=== PATIENT | male | born 1935 | race Caucasian/White ===

== ENCOUNTER 2017-02-10 14:47 | Inpatient (IN) | payer OTHER ==
[~2017-02-10] VITALS: Ht 170.2 cm; Wt 128.7 kg
[~2017-02-10 14:47] MED LIST: None per pt; OXYC-302 PO; TAMS0.4C2 PO; [UNRECOGNIZED DRUG - REMARK]
[2017-02-10] MEDS ORDERED: SODIUM CHLORIDE FLUSH 10ML SYR IVF ONE (15:30)
[2017-02-10] MEDS ORDERED: ALBUTEROL/IPRATROPIUM 2.5MG/0.5MG, 3 ML NPPB ONE (16:00)
[2017-02-10 16:27] LABS: BLOOD UREA NITROGEN 27 mg/dL (7-18)
[2017-02-10] MEDS ORDERED: ALBUTEROL/IPRATROPIUM 2.5MG/0.5MG, 3 ML ONE (16:33)
[2017-02-10 16:44] LABS: IS PT STATUS REG ER OR PRE ER? YES
[2017-02-10 16:58] LABS: DIFF TOTAL CELLS COUNTED 100 CELL DIFF
[2017-02-10 17:00] LABS: VERIFY COUNTS? YES
[2017-02-10] MEDS ORDERED: LEVOFLOXACIN/PMX 750MG/150ML 150 ML IVPB ONE (17:00)
[2017-02-10 17:01] LABS: ANISOCYTOSIS 1+; OVALOCYTES 1+; POLYCHROMASIA 1+
[2017-02-10 17:03] LABS: LARGE PLATELETS 1+
[2017-02-10] MEDS ORDERED: LEVOFLOXACIN/PMX 750MG/150ML 150 ML ONE (17:08)
[2017-02-10] MEDS ORDERED: ASPIRIN 81 MG TABLET CHEW ONE (17:08)
[2017-02-10] MEDS ORDERED: NITROGLYCERIN OINT 2%, 1GM TP ONE ×2 (17:08→17:30)
[2017-02-10] MEDS ORDERED: ASPIRIN 81 MG TABLET CHEW PO ONE (17:30)
[2017-02-10] MEDS ORDERED: SODIUM CHLORIDE FLUSH 10ML SYR IVF PRN (18:30)
[2017-02-10] MEDS ORDERED: ENALAPRILAT 1.25 MG/ML, 2ML IV PRN (18:30)
[2017-02-10] MEDS ORDERED: HEPARIN 5,000 UNITS/ML, 1ML IV PRN (19:30)
[2017-02-10] MEDS ORDERED: HEPARIN 25,000 UNITS/500ML PMX 500 ML IV PRN (19:30)
[2017-02-10] MEDS ORDERED: HEPARIN 5,000 UNITS/ML, 1ML IV ONE (19:30)
[2017-02-10 19:56] VITALS: BP 178/100
[2017-02-10] MEDS ORDERED: BISACODYL 10 MG SUPP PR PRN (20:00)
[2017-02-10] MEDS ORDERED: ACETAMINOPHEN 325 MG TABLET PO PRN (20:00)
[2017-02-10] MEDS ORDERED: MORPHINE SULFATE 4 MG/ML, 1ML IVPush PRN (20:00)
[2017-02-10] MEDS ORDERED: DOCUSATE 100 MG CAPSULE PO PRN (20:00)
[2017-02-10 20:40] VITALS: BP 183/97
[2017-02-10 21:12] LABS: IS PT STATUS REG ER OR PRE ER? NO
[2017-02-10] MEDS: DOXYCYCLINE 100 MG in DEXTROSE 5% 250 ML IV SCH (23:38)
[2017-02-10] MEDS: LISINOPRIL 20 MG TABLET PO SCH (23:38)
[2017-02-10] MEDS: FUROSEMIDE 40 MG/4 ML IV SCH (23:38)
[2017-02-11] MEDS: OFLOXACIN OPHTH 0.3%, 5ML EACHEYE SCH ×5 (00:59→20:25)
[2017-02-11] MEDS: CEFTRIAXONE PMX 1GM/50ML 50 ML IV SCH ×2 (00:59→20:25)
[2017-02-11 01:31] VITALS: BP 164/93
[2017-02-11 01:38] LABS: HEMOGLOBIN 17.1 g/dL (13.7-18.0)
[2017-02-11 01:47] LABS: ASPARTATE AMINO TRANSFERASE 45 U/L (15-37); BLOOD UREA NITROGEN 21 mg/dL (7-18)
[2017-02-11 01:49] LABS: IS PT STATUS REG ER OR PRE ER? NO
[2017-02-11 01:58] LABS: DIFF TOTAL CELLS COUNTED 100 CELL DIFF
[2017-02-11 02:01] LABS: ANISOCYTOSIS 1+; POLYCHROMASIA 1+; VERIFY COUNTS? YES
[2017-02-11] MEDS: ASPIRIN 325 MG TABLET EC PO SCH (06:16)
[2017-02-11] MEDS: FUROSEMIDE 40 MG/4 ML IV SCH ×3 (07:30→17:12)
[2017-02-11 08:45] VITALS: BP 160/83
[2017-02-11] MEDS: DOXYCYCLINE 100 MG in DEXTROSE 5% 250 ML IV SCH ×2 (09:09→20:25)
[2017-02-11] MEDS: LISINOPRIL 20 MG TABLET PO SCH (09:09)
[2017-02-11 10:40] VITALS: BP 144/74
[2017-02-11] MEDS: CARVEDILOL 3.125 MG TABLET PO SCH ×2 (10:41→17:13)
[2017-02-11] MEDS: SPIRONOLACTONE 25 MG TABLET PO SCH ×2 (10:41→20:25)
[2017-02-11] MEDS: HEPARIN 5,000 UNITS/ML, 1ML SQ SCH ×2 (10:53→17:13)
[2017-02-11 13:36] VITALS: BP 132/71
[2017-02-11 17:13] VITALS: BP 143/68
[2017-02-11 20:55] VITALS: BP 155/64
[2017-02-12 00:14] VITALS: BP 154/76
[2017-02-12] MEDS: FUROSEMIDE 40 MG/4 ML IV SCH ×2 (00:39→08:28)
[2017-02-12] MEDS: HEPARIN 5,000 UNITS/ML, 1ML SQ SCH ×3 (03:09→17:41)
[2017-02-12 06:18] LABS: HEMOGLOBIN 16.7 g/dL (13.7-18.0)
[2017-02-12 06:32] LABS: BLOOD UREA NITROGEN 28 mg/dL (7-18)
[2017-02-12] MEDS: ASPIRIN 325 MG TABLET EC PO SCH (06:32)
[2017-02-12] MEDS: CARVEDILOL 3.125 MG TABLET PO SCH ×2 (06:32→17:41)
[2017-02-12] MEDS: OFLOXACIN OPHTH 0.3%, 5ML EACHEYE SCH ×4 (06:32→20:04)
[2017-02-12] MEDS: DOXYCYCLINE 100 MG in DEXTROSE 5% 250 ML IV SCH ×2 (08:27→20:04)
[2017-02-12] MEDS: SPIRONOLACTONE 25 MG TABLET PO SCH (08:28)
[2017-02-12] MEDS: LISINOPRIL 20 MG TABLET PO SCH (08:28)
[2017-02-12 08:31] VITALS: BP 147/59
[2017-02-12 12:39] VITALS: BP 110/47
[2017-02-12] MEDS ORDERED: ENALAPRILAT 1.25 MG/ML, 2ML IV PRN (15:00)
[2017-02-12] MEDS: FUROSEMIDE 40 MG TABLET PO SCH (17:41)
[2017-02-12] MEDS ORDERED: FUROSEMIDE 40 MG/4 ML IV SCH (20:00)
[2017-02-12] MEDS: CEFTRIAXONE PMX 1GM/50ML 50 ML IV SCH (20:04)
[2017-02-12] MEDS: SPIRONOLACTONE 50 MG TABLET PO SCH (20:04)
[2017-02-12 20:05] VITALS: BP 172/76
[2017-02-13 01:15] VITALS: BP 168/80
[2017-02-13] MEDS: HEPARIN 5,000 UNITS/ML, 1ML SQ SCH ×3 (02:42→17:13)
[2017-02-13 05:19] LABS: HEMOGLOBIN 17.4 g/dL (13.7-18.0)
[2017-02-13 05:23] LABS: BLOOD UREA NITROGEN 26 mg/dL (7-18)
[2017-02-13] MEDS: CARVEDILOL 3.125 MG TABLET PO SCH (06:44)
[2017-02-13] MEDS: ASPIRIN 81 MG TABLET EC PO SCH (06:44)
[2017-02-13] MEDS: OFLOXACIN OPHTH 0.3%, 5ML EACHEYE SCH ×4 (06:46→20:43)
[2017-02-13 06:51] VITALS: BP 166/82
[2017-02-13] MEDS ORDERED: LISINOPRIL 20 MG TABLET PO SCH (09:00)
[2017-02-13] MEDS: DOXYCYCLINE 100 MG in DEXTROSE 5% 250 ML IV SCH (09:34)
[2017-02-13] MEDS: SPIRONOLACTONE 50 MG TABLET PO SCH ×2 (09:34→20:43)
[2017-02-13] MEDS: FUROSEMIDE 40 MG TABLET PO SCH ×2 (09:35→17:00)
[2017-02-13] MEDS: LISINOPRIL 20 MG TABLET PO SCH (09:39)
[2017-02-13] MEDS ORDERED: NALOXONE 0.4 MG/ML, 1ML IVPush ONE (10:00)
[2017-02-13 10:11] LABS: ABG COLLECTION SITE RIGHT RADIAL; COLLATERAL CIRCULATION TESTING NORMAL
[2017-02-13 11:43] LABS: ASPARTATE AMINO TRANSFERASE 32 U/L (15-37); BLOOD UREA NITROGEN 23 mg/dL (7-18)
[2017-02-13] MEDS: LACTULOSE 20 GM/30 ML UDC PO SCH ×2 (11:43→20:43)
[2017-02-13 12:39] VITALS: BP 164/93
[2017-02-13] MEDS ORDERED: FUROSEMIDE 100 MG/10 ML IV ONE (13:30)
[2017-02-13 15:16] LABS: ABG COLLECTION SITE RIGHT RADIAL; COLLATERAL CIRCULATION TESTING NORMAL
[2017-02-13] MEDS: FUROSEMIDE 40 MG/4 ML IV SCH (17:13)
[2017-02-13] MEDS: CARVEDILOL 12.5 MG TABLET PO SCH (17:13)
[2017-02-14] MEDS: HEPARIN 5,000 UNITS/ML, 1ML SQ SCH ×3 (02:24→17:14)
[2017-02-14 04:00] VITALS: BP_SYST 136; BP_SYST 96; BP_DIAS 57
[2017-02-14 04:21] LABS: HEMOGLOBIN 17.1 g/dL (13.7-18.0)
[2017-02-14 04:35] LABS: ANISOCYTOSIS 1+
[2017-02-14 04:36] LABS: POLYCHROMASIA 1+
[2017-02-14] MEDS: ASPIRIN 81 MG TABLET EC PO SCH (06:22)
[2017-02-14] MEDS: CARVEDILOL 12.5 MG TABLET PO SCH ×2 (06:22→17:14)
[2017-02-14] MEDS: OFLOXACIN OPHTH 0.3%, 5ML EACHEYE SCH ×4 (06:23→21:01)
[2017-02-14] MEDS: FUROSEMIDE 40 MG TABLET PO SCH ×2 (08:00→17:00)
[2017-02-14 08:38] LABS: ABG COLLECTION SITE LEFT RADIAL; COLLATERAL CIRCULATION TESTING NORMAL
[2017-02-14] MEDS: LISINOPRIL 20 MG TABLET PO SCH (08:55)
[2017-02-14] MEDS: FUROSEMIDE 40 MG/4 ML IV SCH (08:55)
[2017-02-14] MEDS: SPIRONOLACTONE 50 MG TABLET PO SCH ×2 (08:59→21:01)
[2017-02-14] MEDS: LACTULOSE 20 GM/30 ML UDC PO SCH (09:00)
[2017-02-15] MEDS: HEPARIN 5,000 UNITS/ML, 1ML SQ SCH ×3 (02:01→18:32)
[2017-02-15 03:00] VITALS: BP 144/78
[2017-02-15 04:25] LABS: BLOOD UREA NITROGEN 34 mg/dL (7-18)
[2017-02-15 04:29] LABS: ASPARTATE AMINO TRANSFERASE 45 U/L (15-37)
[2017-02-15 04:30] LABS: ANISOCYTOSIS 1+; LARGE PLATELETS 1+
[2017-02-15 04:34] LABS: POLYCHROMASIA 1+
[2017-02-15] MEDS: OFLOXACIN OPHTH 0.3%, 5ML EACHEYE SCH ×4 (05:12→20:41)
[2017-02-15] MEDS: CARVEDILOL 12.5 MG TABLET PO SCH ×2 (06:33→18:32)
[2017-02-15] MEDS ORDERED: SODIUM CHLORIDE 0.9% 500 ML IV SCH (07:48)
[2017-02-15] MEDS ORDERED: OCTREOTIDE 500 MCG in SODIUM CHLORIDE 0.9% 249 ML IV SCH (08:00)
[2017-02-15] MEDS: FUROSEMIDE 40 MG TABLET PO SCH (08:00)
[2017-02-15] MEDS: ASPIRIN 81 MG TABLET EC PO SCH (08:42)
[2017-02-15] MEDS: LISINOPRIL 20 MG TABLET PO SCH (08:43)
[2017-02-15] MEDS ORDERED: PHARMACOKINETIC MONITORING MC PRN (11:00)
[2017-02-15] MEDS: METRONIDAZOLE PMX 500MG/100ML 100 ML IV SCH ×2 (11:00→19:55)
[2017-02-15] MEDS ORDERED: VANCOMYCIN PER PHARMACY MC PRN (11:00)
[2017-02-15] MEDS: VANCOMYCIN 2,000 MG in SODIUM CHLORIDE 0.9% 500 ML IV SCH (15:56)
[2017-02-16] MEDS: HEPARIN 5,000 UNITS/ML, 1ML SQ SCH ×3 (02:27→16:47)
[2017-02-16] MEDS: METRONIDAZOLE PMX 500MG/100ML 100 ML IV SCH ×3 (04:42→20:36)
[2017-02-16 05:00] VITALS: BP 121/64
[2017-02-16] MEDS: ASPIRIN 81 MG TABLET EC PO SCH (05:44)
[2017-02-16] MEDS: OFLOXACIN OPHTH 0.3%, 5ML EACHEYE SCH ×4 (05:45→20:37)
[2017-02-16] MEDS: CARVEDILOL 12.5 MG TABLET PO SCH ×2 (06:00→16:43)
[2017-02-16] MEDS ORDERED: REGADENOSON 0.4 MG/5 ML SYRINGE ONE (07:48)
[2017-02-16] MEDS: FUROSEMIDE 20 MG TABLET PO SCH (08:50)
[2017-02-16 08:55] LABS: ABG COLLECTION SITE LEFT RADIAL; COLLATERAL CIRCULATION TESTING NORMAL
[2017-02-16] MEDS: LISINOPRIL 20 MG TABLET PO SCH (08:55)
[2017-02-16] MEDS ORDERED: SPIRONOLACTONE 50 MG TABLET PO SCH (09:00)
[2017-02-16] MEDS: VANCOMYCIN 2,000 MG in SODIUM CHLORIDE 0.9% 500 ML IV SCH (10:59)
[2017-02-16] MEDS: SPIRONOLACTONE 50 MG TABLET PO SCH (20:37)
[2017-02-17] MEDS: HEPARIN 5,000 UNITS/ML, 1ML SQ SCH ×3 (03:00→19:26)
[2017-02-17 04:00] VITALS: BP 120/55
[2017-02-17] MEDS: METRONIDAZOLE PMX 500MG/100ML 100 ML IV SCH ×3 (04:18→19:27)
[2017-02-17 04:45] LABS: ASPARTATE AMINO TRANSFERASE 49 U/L (15-37); BLOOD UREA NITROGEN 27 mg/dL (7-18)
[2017-02-17 04:50] LABS: HEMOGLOBIN 15.7 g/dL (13.7-18.0)
[2017-02-17] MEDS: ASPIRIN 81 MG TABLET EC PO SCH (05:54)
[2017-02-17] MEDS: CARVEDILOL 12.5 MG TABLET PO SCH ×2 (05:54→19:26)
[2017-02-17] MEDS: OFLOXACIN OPHTH 0.3%, 5ML EACHEYE SCH ×4 (05:55→21:21)
[2017-02-17] MEDS: SPIRONOLACTONE 50 MG TABLET PO SCH ×2 (09:23→21:21)
[2017-02-17] MEDS: FUROSEMIDE 20 MG TABLET PO SCH (09:24)
[2017-02-17] MEDS: LISINOPRIL 20 MG TABLET PO SCH (09:26)
[2017-02-17] MEDS ORDERED: REGADENOSON 0.4 MG/5 ML SYRINGE ONE (10:20)
[2017-02-17] MEDS: ALBUTEROL/IPRATROPIUM 2.5MG/0.5MG, 3 ML NPPB SCH ×3 (11:00→20:00)
[2017-02-17] MEDS: VANCOMYCIN 2,000 MG in SODIUM CHLORIDE 0.9% 500 ML IV SCH (11:00)
[2017-02-17] MEDS ORDERED: SODIUM CHLORIDE 0.9%, 500ML IVBOLUS ONE ×2 (12:30→13:30)
[2017-02-17] MEDS ORDERED: OMNIPAQUE 350 MG/ML, 100ML BOTTLE ONE (13:39)
[2017-02-18] MEDS: HEPARIN 5,000 UNITS/ML, 1ML SQ SCH ×3 (03:29→18:36)
[2017-02-18] MEDS: METRONIDAZOLE PMX 500MG/100ML 100 ML IV SCH ×3 (03:29→20:18)
[2017-02-18 04:00] VITALS: BP 100/53
[2017-02-18 04:48] LABS: BLOOD UREA NITROGEN 25 mg/dL (7-18)
[2017-02-18 04:52] LABS: ASPARTATE AMINO TRANSFERASE 83 U/L (15-37)
[2017-02-18] MEDS: CARVEDILOL 12.5 MG TABLET PO SCH ×2 (06:00→18:35)
[2017-02-18] MEDS: ASPIRIN 81 MG TABLET EC PO SCH (06:08)
[2017-02-18] MEDS: OFLOXACIN OPHTH 0.3%, 5ML EACHEYE SCH ×4 (06:08→20:22)
[2017-02-18] MEDS: ALBUTEROL/IPRATROPIUM 2.5MG/0.5MG, 3 ML NPPB SCH ×4 (07:00→20:00)
[2017-02-18] MEDS: SPIRONOLACTONE 50 MG TABLET PO SCH ×2 (08:54→20:22)
[2017-02-18] MEDS: LISINOPRIL 20 MG TABLET PO SCH (08:54)
[2017-02-18] MEDS: FUROSEMIDE 20 MG TABLET PO SCH (10:54)
[2017-02-19] MEDS: HEPARIN 5,000 UNITS/ML, 1ML SQ SCH ×3 (02:34→18:15)
[2017-02-19] MEDS: METRONIDAZOLE PMX 500MG/100ML 100 ML IV SCH (03:45)
[2017-02-19 04:00] VITALS: BP 124/58
[2017-02-19] MEDS: ASPIRIN 81 MG TABLET EC PO SCH (06:27)
[2017-02-19] MEDS: OFLOXACIN OPHTH 0.3%, 5ML EACHEYE SCH ×4 (06:27→23:14)
[2017-02-19] MEDS: CARVEDILOL 12.5 MG TABLET PO SCH ×2 (06:28→18:14)
[2017-02-19] MEDS: ALBUTEROL/IPRATROPIUM 2.5MG/0.5MG, 3 ML NPPB SCH ×4 (07:00→20:30)
[2017-02-19] MEDS: LISINOPRIL 20 MG TABLET PO SCH (08:37)
[2017-02-19] MEDS: AMOXICILLIN/CLAV 500-125MG TABLET PO SCH ×3 (08:38→23:12)
[2017-02-19] MEDS: FUROSEMIDE 20 MG TABLET PO SCH (08:38)
[2017-02-19] MEDS: SPIRONOLACTONE 50 MG TABLET PO SCH ×2 (08:38→23:13)
[2017-02-19 19:54] VITALS: BP 127/64
[2017-02-20 01:36] VITALS: BP 122/58
[2017-02-20] MEDS: ASPIRIN 81 MG TABLET EC PO SCH (05:37)
[2017-02-20] MEDS: OFLOXACIN OPHTH 0.3%, 5ML EACHEYE SCH ×4 (05:38→21:43)
[2017-02-20] MEDS: CARVEDILOL 12.5 MG TABLET PO SCH ×2 (05:38→18:04)
[2017-02-20] MEDS: HEPARIN 5,000 UNITS/ML, 1ML SQ SCH ×3 (05:38→21:43)
[2017-02-20] MEDS: AMOXICILLIN/CLAV 500-125MG TABLET PO SCH ×3 (06:05→23:06)
[2017-02-20 06:36] VITALS: BP 136/72
[2017-02-20] MEDS: ALBUTEROL/IPRATROPIUM 2.5MG/0.5MG, 3 ML NPPB SCH ×4 (06:45→21:20)
[2017-02-20] MEDS: LISINOPRIL 20 MG TABLET PO SCH (08:34)
[2017-02-20] MEDS: FUROSEMIDE 20 MG TABLET PO SCH (08:34)
[2017-02-20] MEDS: SPIRONOLACTONE 50 MG TABLET PO SCH ×2 (08:35→21:42)
[2017-02-20 12:26] VITALS: BP 138/66
[2017-02-20 19:46] VITALS: BP 142/70
[2017-02-21 02:56] VITALS: BP 137/66
[2017-02-21] MEDS: CARVEDILOL 12.5 MG TABLET PO SCH ×2 (05:55→17:33)
[2017-02-21] MEDS: ASPIRIN 81 MG TABLET EC PO SCH (05:55)
[2017-02-21] MEDS: OFLOXACIN OPHTH 0.3%, 5ML EACHEYE SCH ×4 (05:55→20:22)
[2017-02-21] MEDS: HEPARIN 5,000 UNITS/ML, 1ML SQ SCH ×3 (05:56→23:04)
[2017-02-21] MEDS: AMOXICILLIN/CLAV 500-125MG TABLET PO SCH ×3 (06:08→23:04)
[2017-02-21] MEDS: ALBUTEROL/IPRATROPIUM 2.5MG/0.5MG, 3 ML NPPB SCH ×4 (07:00→20:35)
[2017-02-21 07:23] VITALS: BP 128/76
[2017-02-21] MEDS: LISINOPRIL 20 MG TABLET PO SCH (08:30)
[2017-02-21] MEDS: SPIRONOLACTONE 50 MG TABLET PO SCH ×2 (08:30→20:23)
[2017-02-21] MEDS: FUROSEMIDE 20 MG TABLET PO SCH (08:30)
[2017-02-21 14:26] VITALS: BP 126/72
[2017-02-21 20:22] VITALS: BP 136/55
[2017-02-22 02:05] VITALS: BP 119/69
[2017-02-22] MEDS: OFLOXACIN OPHTH 0.3%, 5ML EACHEYE SCH ×3 (06:02→15:58)
[2017-02-22] MEDS: HEPARIN 5,000 UNITS/ML, 1ML SQ SCH ×2 (06:02→15:58)
[2017-02-22] MEDS: ASPIRIN 81 MG TABLET EC PO SCH (06:03)
[2017-02-22] MEDS: CARVEDILOL 12.5 MG TABLET PO SCH ×2 (06:03→18:43)
[2017-02-22] MEDS: AMOXICILLIN/CLAV 500-125MG TABLET PO SCH ×2 (06:03→15:58)
[2017-02-22 06:06] LABS: BLOOD UREA NITROGEN 56 mg/dL (7-18)
[2017-02-22 06:20] LABS: HEMOGLOBIN 14.9 g/dL (13.7-18.0)
[2017-02-22] MEDS: ALBUTEROL/IPRATROPIUM 2.5MG/0.5MG, 3 ML NPPB SCH ×3 (06:35→14:25)
[2017-02-22 07:28] VITALS: BP 101/64
[2017-02-22] MEDS ORDERED: SPIRONOLACTONE 25 MG TABLET PO SCH (09:00)
[2017-02-22] MEDS: LISINOPRIL 20 MG TABLET PO SCH (09:00)
[2017-02-22 09:45] VITALS: BP 92/53
[2017-02-22] MEDS: FUROSEMIDE 20 MG TABLET PO SCH (10:37)
[2017-02-22] MEDS ORDERED: ASPI-621 PO (13:17)
[2017-02-22] MEDS ORDERED: AMOX-367 PO (13:17)
[2017-02-22] MEDS ORDERED: CARV12.543 PO (13:17)
[2017-02-22] MEDS ORDERED: FURO20TA3 PO (13:17)
[2017-02-22] MEDS ORDERED: SPIR25TA PO (13:17)
[2017-02-22] MEDS ORDERED: LISI-170 PO (13:17)
[2017-02-22] MEDS ORDERED: OFLO5DRO4 EACHEYE (13:17)
[2017-02-22] MEDS ORDERED: ALBU8.5H3 INH (13:17)
[2017-02-22 13:28] VITALS: BP 105/64
== END 2017-02-22 20:15 | disposition home or self-care (01) | DRG 70 ==
LOC: ED 16:55 → EDIP 18:01 → 5SO 19:00 → CCU 02-13 14:03 → 4WST 02-19 18:38
PROVIDERS: ADMIT Internal Medicine
PROC: 5A09557 Assistance with Respiratory Ventilation, Greater than 96 Consecutive Hours, Continuous Positive Airway Pressure (ICD-10-PCS; principal; 2017-02-13)
PROC: BD11YZZ Fluoroscopy of Esophagus using Other Contrast (ICD-10-PCS; 2017-02-15)
DX: G93.41 Metabolic encephalopathy (principal); J96.01 Acute respiratory failure with hypoxia; J18.9 Pneumonia, unspecified organism; J96.02 Acute respiratory failure with hypercapnia; N17.0 Acute kidney failure with tubular necrosis; I50.33 Acute on chronic diastolic (congestive) heart failure; E87.1 Hypo-osmolality and hyponatremia; J98.11 Atelectasis; Z68.41 Body mass index [BMI] 40.0-44.9, adult; I11.0 Hypertensive heart disease with heart failure; J40 Bronchitis, not specified as acute or chronic; G47.33 Obstructive sleep apnea (adult) (pediatric); H10.9 Unspecified conjunctivitis; E66.01 Morbid (severe) obesity due to excess calories; D35.02 Benign neoplasm of left adrenal gland; H10.30 Unspecified acute conjunctivitis, unspecified eye; I87.8 Other specified disorders of veins; J32.0 Chronic maxillary sinusitis; I27.2 Other secondary pulmonary hypertension; N40.0 Benign prostatic hyperplasia without lower urinary tract symptoms; Z66 Do not resuscitate; Z79.82 Long term (current) use of aspirin; Z79.899 Other long term (current) drug therapy; Z87.01 Personal history of pneumonia (recurrent); Z87.891 Personal history of nicotine dependence; Z90.49 Acquired absence of other specified parts of digestive tract
CPT/HCPCS: 36415; 36600; 70450; 71010; 71275; 74230; 78452; 80048; 80053; 80061; 81001; 82040; 82140; 82607; 82803; 83036; 83605; 83735; 83880; 84100; 84145; 84443; 84484; 85025; 85520; 85651; 87040; 87070; 87081; 87086; 87205; 93005; 93017; 93308; 93321; 93970; 94640; 94660; 99291; C8929; J0696; J1644; J1940; J1956; J2310; J2785; J3370; J7060; J7620; Q9967; A9502; C8924; C9898; J7040

== ENCOUNTER 2019-06-28 10:58 | Day surgery (SDC) | payer MEDICARE ==
[~2019-06-28] VITALS: Ht 170.2 cm; Wt 122.9 kg
[2019-06-28 12:41] VITALS: BP 100/55
== END 2019-06-28 15:00 | disposition home or self-care (01) ==
LOC: OUT 10:58
PROVIDERS: ATTEND Internal Medicine Gastroenterology
DX: D12.5 Benign neoplasm of sigmoid colon (principal); K57.30 Diverticulosis of large intestine without perforation or abscess without bleeding; K64.8 Other hemorrhoids; I11.0 Hypertensive heart disease with heart failure; I50.9 Heart failure, unspecified; E78.00 Pure hypercholesterolemia, unspecified; G47.33 Obstructive sleep apnea (adult) (pediatric); G47.30 Sleep apnea, unspecified; E66.01 Morbid (severe) obesity due to excess calories; Z68.41 Body mass index [BMI] 40.0-44.9, adult; Z79.899 Other long term (current) drug therapy
CPT/HCPCS: 45385; 88305; J2704; J7120

== ENCOUNTER 2019-10-14 18:56 | Inpatient (IN) | payer MEDICARE ==
[~2019-10-14] VITALS: Ht 170.2 cm; Wt 125.4 kg
[~2019-10-14 18:56] MED LIST changes: +ALBU8.5H8 INH; +AMOX-367 PO; +ASPI81TA45 PO; +CARV12.52 PO; +CARV12.543 PO; +FURO20TA3 PO; +LISI-170 PO; +OFLO5DRO4 EACHEYE; +SPIR25TA PO; +SPIR25TA5 PO
--- NOTE | 2019-10-14 19:17 | NUR ---
Patient transferred by 3 [facility] Emergency medical service nadege, one RN and one emergency department loss control technician. Patient is an obese male with a cast in place on the right ankle. Patient reports being unable to bear weight on the left leg, but not related to trauma. Assessment shows pain with eversion of the ankle. Provider to bedside, completed assessment. Awaiting orders.
--- NOTE | 2019-10-14 19:25 | NUR ---
Family members accompanied doctor into the vargas. Daughter expressed concern over patient's scrotal swelling. RN returned to bedside, patients member asked to step into vargas, removed underwear and pants for provider assessment. Family returned to bedside, reviewed ER plan of care, orders placed for labs. Patient and family verbalized understanding.
[2019-10-14 19:34] LABS: BASOPHILS # (AUTO) 0.07 x10^3/uL (0-0.1); BASOPHILS % (AUTO) 1 % (0-1); EOSINOPHILS # (AUTO) 0.38 x10^3/uL (0-0.4); EOSINOPHILS % (AUTO) 4 % (1-7); LYMPHOCYTES # (AUTO) 2.31 x10^3/uL (1-3.4); LYMPHOCYTES % (AUTO) 23 % (22-44); MD NO; MEAN CORPUSCULAR HEMOGLOBIN 27.7 pg (27.5-34.5); MEAN CORPUSCULAR HGB CONC 31.9 g/dL (33.2-36.2); MEAN CORPUSCULAR VOLUME 86.8 fL (81-97); MEAN PLATELET VOLUME 7.7 fL (7.4-10.4); MONOCYTES # (AUTO) 0.89 x10^3/uL (0.2-0.8); MONOCYTES % (AUTO) 9 % (2-9); NEUTROPHILS # (AUTO) 6.48 x10^3/uL (1.8-6.8); NEUTROPHILS % (AUTO) 64 % (42-75); PLATELET COUNT 324 x10^3/uL (130-400); RED BLOOD COUNT 4.73 x10^6/uL (4.38-5.82); RED CELL DISTRIBUTION WIDTH 15.3 % (9.4-14.8)
--- NOTE | 2019-10-14 19:39 | NUR ---
CAST CUT OFF.
[2019-10-14 19:48] LABS: ALANINE AMINOTRANSFERASE 54 U/L (12-78); ALBUMIN 3.1 g/dL (3.4-5.0); ANION GAP 2 mmol/L (5-15); CALCIUM 9.1 mg/dL (8.5-10.1); CHLORIDE 109 mmol/L (98-107); CREATININE 1.55 mg/dL (0.7-1.3)
[2019-10-14 19:51] LABS: ALKALINE PHOSPHATASE 78 U/L (45-117); BILIRUBIN,TOTAL 0.3 mg/dL (0.2-1.0); CREATINE KINASE, TOTAL 251 U/L (39-308); TOTAL PROTEIN 7.6 g/dL (6.4-8.2)
--- NOTE | 2019-10-14 19:58 | NUR ---
RN to bedside, assisted imaging technican on repositioning of patient. Awaiting imaging of ankle labs.
[2019-10-14] MEDS ORDERED: ASPI-496 PO (20:24)
--- NOTE | 2019-10-14 20:39 | NUR ---
PIV PLACED IN PT. PT TOLERATED WELL.
[2019-10-14 21:51] VITALS: BP 103/51
[2019-10-14] MEDS ORDERED: LABETALOL 5 MG/ML SYR. (IV ONLY) IVPush PRN (22:30)
[2019-10-14] MEDS ORDERED: ONDANSETRON 2MG/ML, 2ML IVPush PRN (22:30)
[2019-10-14] MEDS: HEPARIN 5,000 UNITS/ML, 1ML SQ SCH (23:39)
[2019-10-14] MEDS: FUROSEMIDE 20 MG/2 ML IV SCH (23:41)
[2019-10-15 01:32] VITALS: BP 115/67
[2019-10-15] MEDS: ACETAMINOPHEN 325 MG TABLET PO PRN (01:43)
[2019-10-15 05:19] LABS: BASOPHILS # (AUTO) 0.04 x10^3/uL (0-0.1); BASOPHILS % (AUTO) 0 % (0-1); EOSINOPHILS # (AUTO) 0.38 x10^3/uL (0-0.4); EOSINOPHILS % (AUTO) 4 % (1-7); LYMPHOCYTES # (AUTO) 2.42 x10^3/uL (1-3.4); LYMPHOCYTES % (AUTO) 25 % (22-44); MD NO; MEAN CORPUSCULAR HGB CONC 31.4 g/dL (33.2-36.2); MEAN CORPUSCULAR VOLUME 86.1 fL (81-97); MONOCYTES # (AUTO) 0.89 x10^3/uL (0.2-0.8); MONOCYTES % (AUTO) 9 % (2-9); NEUTROPHILS # (AUTO) 5.91 x10^3/uL (1.8-6.8); NEUTROPHILS % (AUTO) 61 % (42-75); PLATELET COUNT 279 x10^3/uL (130-400); RED BLOOD COUNT 4.43 x10^6/uL (4.38-5.82); RED CELL DISTRIBUTION WIDTH 15.5 % (9.4-14.8)
[2019-10-15 05:23] LABS: ANION GAP 8 mmol/L (5-15); CALCIUM 8.7 mg/dL (8.5-10.1); CHLORIDE 109 mmol/L (98-107); CREATININE 1.65 mg/dL (0.7-1.3)
[2019-10-15 08:12] VITALS: BP 108/55
[2019-10-15] MEDS: CARVEDILOL 12.5 MG TABLET PO SCH (09:04)
[2019-10-15] MEDS: HEPARIN 5,000 UNITS/ML, 1ML SQ SCH ×3 (09:04→23:55)
[2019-10-15] MEDS: FUROSEMIDE 20 MG/2 ML IV SCH ×2 (09:04→17:17)
[2019-10-15] MEDS: ASPIRIN 81 MG TABLET EC PO SCH (09:04)
[2019-10-15 13:13] VITALS: BP 103/42
[2019-10-15] MEDS: GABAPENTIN 300 MG CAPSULE PO SCH ×2 (17:18→21:41)
[2019-10-15 19:47] VITALS: BP 105/57
[2019-10-16 00:48] VITALS: BP 97/62
[2019-10-16 05:36] LABS: ALANINE AMINOTRANSFERASE 44 U/L (12-78); ALBUMIN 2.8 g/dL (3.4-5.0); ANION GAP 6 mmol/L (5-15); CHLORIDE 106 mmol/L (98-107)
[2019-10-16 05:39] LABS: ALKALINE PHOSPHATASE 77 U/L (45-117); BILIRUBIN,TOTAL 0.4 mg/dL (0.2-1.0); CREATININE 1.58 mg/dL (0.7-1.3)
[2019-10-16 08:01] VITALS: BP 114/65
[2019-10-16] MEDS: CARVEDILOL 12.5 MG TABLET PO SCH (08:53)
[2019-10-16] MEDS: GABAPENTIN 300 MG CAPSULE PO SCH ×3 (08:53→20:59)
[2019-10-16] MEDS: ASPIRIN 81 MG TABLET EC PO SCH (08:53)
[2019-10-16] MEDS: FUROSEMIDE 20 MG/2 ML IV SCH ×2 (08:53→16:19)
[2019-10-16] MEDS: HEPARIN 5,000 UNITS/ML, 1ML SQ SCH ×3 (08:54→23:51)
[2019-10-16] MEDS: ACETAMINOPHEN 325 MG TABLET PO PRN (09:10)
[2019-10-16 13:22] VITALS: BP 96/43
[2019-10-16 16:10] VITALS: BP 113/68
[2019-10-16 19:32] VITALS: BP 109/65
[2019-10-17 01:40] VITALS: BP 128/71
[2019-10-17 05:14] LABS: ALANINE AMINOTRANSFERASE 37 U/L (12-78); ALBUMIN 2.8 g/dL (3.4-5.0); ANION GAP 5 mmol/L (5-15); CHLORIDE 104 mmol/L (98-107); CREATININE 1.61 mg/dL (0.7-1.3)
[2019-10-17 05:17] LABS: ALKALINE PHOSPHATASE 67 U/L (45-117); BILIRUBIN,TOTAL 0.5 mg/dL (0.2-1.0); TOTAL PROTEIN 7.5 g/dL (6.4-8.2)
[2019-10-17] MEDS ORDERED: SODIUM POLYSTYRENE SULFONATE ORAL SUSP PO ONE (07:30)
[2019-10-17 08:41] VITALS: BP 114/63
[2019-10-17] MEDS: HEPARIN 5,000 UNITS/ML, 1ML SQ SCH ×2 (09:06→15:42)
[2019-10-17] MEDS: FUROSEMIDE 20 MG/2 ML IV SCH ×2 (09:06→17:00)
[2019-10-17] MEDS: GABAPENTIN 300 MG CAPSULE PO SCH ×2 (09:06→15:42)
[2019-10-17] MEDS: CARVEDILOL 12.5 MG TABLET PO SCH (09:07)
[2019-10-17] MEDS: ASPIRIN 81 MG TABLET EC PO SCH (09:07)
[2019-10-17 11:49] LABS: ANION GAP 7 mmol/L (5-15); CALCIUM 9.1 mg/dL (8.5-10.1); CHLORIDE 102 mmol/L (98-107); CREATININE 1.55 mg/dL (0.7-1.3)
[2019-10-17] MEDS ORDERED: GABA300C10 PO (15:05)
[2019-10-17 15:28] VITALS: BP 106/63
== END 2019-10-17 18:04 | DRG 291 ==
LOC: ED 19:46 → EDIP 20:26 → 3N 21:50
PROVIDERS: ADMIT Family Medicine; ATTEND Family Medicine
DX: I13.0 Hypertensive heart and chronic kidney disease with heart failure and stage 1 through stage 4 chronic kidney disease, or unspecified chronic kidney disease (principal); I50.33 Acute on chronic diastolic (congestive) heart failure; N17.9 Acute kidney failure, unspecified; J96.10 Chronic respiratory failure, unspecified whether with hypoxia or hypercapnia; Z68.41 Body mass index [BMI] 40.0-44.9, adult; E66.01 Morbid (severe) obesity due to excess calories; E87.5 Hyperkalemia; G47.33 Obstructive sleep apnea (adult) (pediatric); I27.20 Pulmonary hypertension, unspecified; J44.9 Chronic obstructive pulmonary disease, unspecified; M19.079 Primary osteoarthritis, unspecified ankle and foot; N18.9 Chronic kidney disease, unspecified; N40.0 Benign prostatic hyperplasia without lower urinary tract symptoms; Z87.891 Personal history of nicotine dependence; Z90.49 Acquired absence of other specified parts of digestive tract; Z91.19 Patient's noncompliance with other medical treatment and regimen; Z99.81 Dependence on supplemental oxygen
CPT/HCPCS: 36415; 80048; 80053; 82550; 83880; 84132; 84443; 85025; 93306; G0378; J1644; J1940

== ENCOUNTER 2020-07-29 14:44 | Emergency (ER) | payer MEDICARE ==
[~2020-07-29] VITALS: Ht 170.2 cm; Wt 124.8 kg
[~2020-07-29 14:44] MED LIST changes: +ACET325T26 PO; +ACID1TAB7 PO; +ASPI-496 PO; +AZIT500T PO; +CEFD300C37 PO; +ENOX30DI3 SQ; +ERTA1VIA4 IV; +FAMO20TA7 PO; +GABA300C10 PO; +LIDO700A20 TD; +LINE600T15 PO; +LISI5TAB7 PO; +ONDA4TAB13 PO; +PRED10TA PO; +SENN-193 PO; +TAMS-11 PO
[2020-07-29] MEDS ORDERED: SODIUM CHLORIDE FLUSH 10ML SYR IVF ONE (15:00)
--- NOTE | 2020-07-29 15:11 | NUR ---
BIB EMS FROM [facility] FOR DECREASED LEVEL OF CONSCIOUSNESS X 3 DAYS WITH COUGH. RECENT DIAGNOSIS OF PNEUMONIA. PATIENT NON-VERBAL IN BED ON 4 L NC WITH A 18 G [place] CATHETER. PT IN GOWN WITH CONT SOUND TESTER, SPO2, BP Q 30 MIN, SIDE RAILS UP X2, CALL LIGHT IN REACH. LAB IN ROOM
--- NOTE | 2020-07-29 15:15 | NUR ---
CALLED NEXT TO [facility] JOSE[facility], SHE IS NOT HOME LEFT A MEESAGE TO CALL BACK
[2020-07-29] MEDS ORDERED: DOXY100C15 PO (15:33)
[2020-07-29] MEDS ORDERED: 0.92DISP2 IV (15:35)
[2020-07-29] MEDS ORDERED: CARV12.52 PO (15:36)
[2020-07-29] MEDS ORDERED: FINA5TAB4 PO (15:38)
[2020-07-29] MEDS ORDERED: CEFT1VIA13 IV (15:38)
[2020-07-29 15:41] LABS: BASOPHILS # (AUTO) 0.04 x10^3/uL (0-0.1); BASOPHILS % (AUTO) 0 % (0-1); EOSINOPHILS # (AUTO) 0.09 x10^3/uL (0-0.4); EOSINOPHILS % (AUTO) 1 % (1-7); LYMPHOCYTES # (AUTO) 1.41 x10^3/uL (1-3.4); LYMPHOCYTES % (AUTO) 13 % (22-44); MD NO; MEAN CORPUSCULAR HEMOGLOBIN 25.3 pg (27.5-34.5); MEAN CORPUSCULAR HGB CONC 30.4 g/dL (33.2-36.2); MEAN CORPUSCULAR VOLUME 83.4 fL (81-97); MEAN PLATELET VOLUME 7.3 fL (7.4-10.4); MONOCYTES # (AUTO) 0.95 x10^3/uL (0.2-0.8); MONOCYTES % (AUTO) 9 % (2-9); NEUTROPHILS # (AUTO) 8.27 x10^3/uL (1.8-6.8); NEUTROPHILS % (AUTO) 77 % (42-75); PLATELET COUNT 306 x10^3/uL (130-400); RED BLOOD COUNT 4.34 x10^6/uL (4.38-5.82); RED CELL DISTRIBUTION WIDTH 21.2 % (9.4-14.8)
[2020-07-29 15:43] LABS: INTERNATIONAL NORMALIZED RATIO 1.07 (0.93-1.1)
[2020-07-29 15:49] LABS: ALANINE AMINOTRANSFERASE 23 U/L (12-78); ANION GAP 2 mmol/L (5-15); CALCIUM 8.7 mg/dL (8.5-10.1); CHLORIDE 105 mmol/L (98-107); CREATININE 0.96 mg/dL (0.7-1.3)
[2020-07-29] MEDS ORDERED: METR500T PO (15:49)
--- NOTE | 2020-07-29 15:49 | NUR ---
REPORT FROM SANAZ RN. PT BACK FROM CT, CURRENTLY NOT RESPONDING TO VERBAL COMMAND, RESPONDING TO STERNAL RUB, OPENS EYES AND NODS HEAD. FALL PRECAUTIONS IN PLACE.
[2020-07-29 15:54] LABS: ALKALINE PHOSPHATASE 67 U/L (45-117); BILIRUBIN,TOTAL 0.2 mg/dL (0.2-1.0); TROPONIN I < 0.015 ng/mL (0.000-0.045)
--- NOTE | 2020-07-29 16:08 | NUR ---
BREAK RN: BIPAP SETTINGS AT 15/8 AND 40%
--- NOTE | 2020-07-29 17:37 | NUR ---
PT'S DAUGHTER TK AT BEDSIDE.
--- NOTE | 2020-07-29 18:47 | NUR ---
REPORT GIVEN TO MONISHA SIBLEY.
--- NOTE | 2020-07-29 18:53 | NUR ---
RECEIVED REPORT FROM MARYJO TIWARI. PT LAYING IN BED, CONNECTED TO ALL MONITORS. ALL NEEDS MET AT THIS TIME. Addendum: 07/29/20 at 1858 by VASQUEZ PT RESPONSIVE TO VERBAL STIMULI.
[2020-07-29 19:28] VITALS: BP 135/61
== END 2020-07-29 19:31 | disposition home or self-care (01) ==
LOC: ED 14:54
DX: J96.02 Acute respiratory failure with hypercapnia (principal); J18.0 Bronchopneumonia, unspecified organism; J96.90 Respiratory failure, unspecified, unspecified whether with hypoxia or hypercapnia; K72.01 Acute and subacute hepatic failure with coma; Z11.59 Encounter for screening for other viral diseases; R41.82 Altered mental status, unspecified; I45.10 Unspecified right bundle-branch block; R51 Headache; I11.0 Hypertensive heart disease with heart failure; I50.9 Heart failure, unspecified; Z79.899 Other long term (current) drug therapy
CPT/HCPCS: 36600; 70450; 71045; 80053; 82140; 82803; 83605; 84145; 84443; 84484; 85025; 85610; 87040; 87635; 93005; 94660; 99291